=== PATIENT | female | born 1985 | race Caucasian/White ===

== ENCOUNTER 2020-10-23 15:35 | Emergency (ER) | payer OTHER ==
[~2020-10-23 15:35] MED LIST: BACTRIM DS TAB1 EACH PO
[2020-10-23] MEDS ORDERED: CYCLOBENZAPRINE10 MG PO (16:06)
== END 2020-10-23 16:28 | disposition home or self-care (01) ==
LOC: ER1 15:35
DX: M67.432 Ganglion, left wrist (principal); F17.210 Nicotine dependence, cigarettes, uncomplicated
CPT/HCPCS: 99282